=== PATIENT | male | born 1950 | race Caucasian/White ===

== ENCOUNTER → 2018-01-08 | Outpatient (CLI) | payer MEDICARE, OTHER ==
--- NOTE | 2018-01-08 17:07 | CARDNUC ---
[place] [address] CARDIAC NUCLEAR IMAGING REPORT Name: NEAL AARON Room: [facility]#: [id number] Admission: 01/08/18 Attend Phys: Claudy Romero Discharge: Date of : 54 Date of Service: 01/08/18 1707 Report #: [id number] THIS REPORT FOR: //name// APPROVED REPORT Study performed: 01/08/2018 08:45:00 Exam: Nuclear Stress Test Indication: Chest pain, Dyspnea Patient Location: Out-Patient Stress Tech: [facility] Stress Nurse: Lo Diop RN Ht: 6 ft 0 in Wt: 216 lbs BSA: 2.20 m2 BMI: 29.2 Medical History Medical History: Diabetes, Hyperlipidemia Medications: No cardiac medications Allergies: No known drug allergies Cardiac Risk Factors: Age, DM, Hyperlipidemia Exercise History: Physically active NM EXAM: Myocardial Perfusion REST/STRESS Imaging Protocol: Rest Tc-99m/Stress Tc-99m 1 day Resting Data Rest SPECT myocardial perfusion imaging was performed in supine position 45 minutes following the intravenous injection of 11 mCi of Tc-99m Sestamibi. Time of rest injection: 939 Date: 01/08/2018 The images were gated to evaluate regional wall motion and calculate left ventricular ejection fraction. Administration Route: IV Administration Site: Right AC Pharmacologic Stress Time of stress injection: Exercise Stress At peak stress, the patient was injected intravenously with 34.0mCi of Tc-99m Sestamibi. Time of stress injection: 1110 Time of stress imagin Administration Route: [place] [address] CARDIAC NUCLEAR IMAGING REPORT Name: NEAL AARON Room: [facility]#: [id number] Admission: 01/08/18 Attend Phys: Claudy Romero Discharge: Date of : 54 Date of Service: 01/08/18 1707 Report #: [id number] Administration Site: Right AC Heart Rate at time of stress injection: 148 bpm. Gated Stress SPECT was performed 30 minutes after stress injection. The images were gated to evaluate regional wall motion and calculate left ventricular ejection fraction. Prone imaging was performed. Study Quality Study: Good Artifact: Mild Motion artifact Study Data At rest, the left ventricular ejection fraction was 69%.. Post stress, the left ventricular ejection was 70%.. SSS: 2 SRS: 0 SDS: 2 TID = 0.63. Perfusion Review of rest data reveals normal perfusion, without perfusion defects.Imaging obtained following vasodilator stress demonstrate a similar, uniform uptake of tracer without defects. Prone imaging was normal. LVEDV is normal.No segental wall motion abnormality seen. Images were reviewed using [employer]. Wall Motion normal all segments Nuclear Conclusion ECG Findings: non-diagnostic Clinical Findings: negative for ischemia Nuclear Findings: negative for ischemia Exercise Capacity: normal Left Ventricular Function: normal Risk Study: low Normal exercise nuclear stress test. Interpreted by: x Electronically Approved: x Stress Test Details Stress Test: Exercise stress testing was performed using a [place] [address] CARDIAC NUCLEAR IMAGING REPORT Name: NEAL AARON Room: [facility]#: [id number] Admission: 01/08/18 Attend Phys: Claudy Romero Discharge: Date of : 54 Date of Service: 01/08/18 1707 Report #: [id number] Resting HR: 56 bpm Max Heart Rate (APMHR): 155 bpm Max HR Achieved: 148 bpm Target HR (85% APMHR): 131 bpm % of APMHR: 95 Recovery HR: 95 bpm HR response to stress: Normal HR response to stress BP Resting BP: 126/82 mmHg Max BP: 208/78 mmHg BP response to stress: Normal blood pressure response to stress. ECG Resting ECG: Sinus Rhythm, RBBB Stress ECG: Sinus Rhythm, RBBB Recovery ECG: Sinus Rhythm Clinical Reason for Termination: Maximal effort Stress Symptoms: None Exercise duration: 7 min 40 sec Exercise capacity: 9.61 METs Stress ECG Conclusion nondiagnostic <Conclusion> nondiagnostic <ELECTRONICALLY SIGNED> By: Melchor Boudreaux MD, FACC 01/08/18 170 06 06 Melchor Boudreaux MD, [facility] /INF
== END ==
LOC: M.NUC 08:38
DX: R06.00 Dyspnea, unspecified (principal); R07.89 Other chest pain

== ENCOUNTER → 2019-01-30 | Outpatient (CLI) | payer MEDICARE, OTHER | LOC: M.MRI 08:30 | DX: M50.11 Cervical disc disorder with radiculopathy, high cervical region (principal); M48.02 Spinal stenosis, cervical region; M47.22 Other spondylosis with radiculopathy, cervical region ==